=== PATIENT | female | born 1950 | race Hispanic/Latino ===

== ENCOUNTER 2016-12-09 08:25 | Day surgery (SDC) | payer OTHER, MEDICARE ==
[~2016-12-09 08:25] MED LIST: ANCEF/STERILE WATER 2 GM/20 ML 2 GM/20 ML SYRINGE IV NR; NACL 0.9% 1000 ML 1,000 ML IV SCH
[2016-12-09 09:13] LABS: Basophils % (Auto) 0.2 % (0.0-1.8); Eosinophils % (Auto) 2.7 % (0.0-4.3); Hematocrit 41.9 % (30.3-42.9); Mean Corpuscular HGB Conc 33 % (30-34); Mean Corpuscular Hemoglobin 31 pg (28-32); Mean Corpuscular Volume 92 fl (79-97); Platelet Count 228 K/mm3 (140-440); Red Blood Count 4.54 M/mm3 (3.65-5.03); Red Cell Distribution Width 12.5 % (13.2-15.2); White Blood Count 5.2 K/mm3 (4.5-11.0)
[2016-12-09 09:31] LABS: Anion Gap 11 mmol/L; BUN/Creatinine Ratio 35; Blood Urea Nitrogen 21 mg/dL (7-17); Calcium 9.3 mg/dL (8.4-10.2); Carbon Dioxide 32 mmol/L (22-30); Glucose 86 mg/dL (65-100); Potassium 4.4 mmol/L (3.6-5.0); Sodium 144 mmol/L (137-145)
[2016-12-09] MEDS ORDERED: HEPARIN/NS 5000 UNIT/500ML(CATH LAB) 500 ML IR ONE ×2 (15:08→16:09)
[2016-12-09] MEDS ORDERED: HEPARIN 10,000 UNITS/10 ML ONE (15:08)
[2016-12-09] MEDS ORDERED: CALAN ONE (15:09)
[2016-12-09] MEDS ORDERED: XYLOCAINE 2% INFILTRATI ONE (15:09)
[2016-12-09] MEDS ORDERED: NITROGLYCERIN SYRINGE 3 ML ONE (15:09)
[2016-12-09] MEDS: VERSED ONE ×2 (15:25→15:54)
[2016-12-09] MEDS: SUBLIMAZE ONE ×2 (15:25→15:54)
--- NOTE | 2016-12-09 16:33 | Short Stay Summary ---
Short Stay Documentation Date of service: 12/09/16 - History Principal diagnosis: Mesenteric artery stenosis H&P: obtained from office - Allergies and Medications Current Medications: Allergies cephalexin [From Keflex] Adverse Reaction (Verified 12/09/16 12:07) Swelling clarithromycin [From Biaxin] Adverse Reaction (Verified 12/09/16 12:07) Dizziness codeine Adverse Reaction (Verified 12/09/16 12:07) Itching promethazine [From Phenergan] Adverse Reaction (Verified 12/09/16 12:07) Dizziness Home Medications Medication Instructions Recorded Confirmed Last Taken Type Calcium Elemental 600 mg 1,200 mg PO DAILY 12/09/16 12/09/16 12/08/16 History Ambien 10 mg PO QHS 12/09/16 12/09/16 12/08/16 History Amlodipine Besylate [Norvasc] 5 mg PO DAILY 12/09/16 12/09/16 12/08/16 History Aspirin EC [Aspirin Enteric Coated 81 mg PO DAILY 12/09/16 12/09/16 12/08/16 History TAB] Magnesium [Magnesium] 250 mg PO DAILY 12/09/16 12/09/16 12/08/16 History Mvw Complete Form Multivi Sfgl 1 tab PO DAILY 12/09/16 12/09/16 12/08/16 History Pantoprazole [Protonix TAB] 20 mg PO DAILY 12/09/16 12/09/16 12/08/16 History Turmeric 500 mg Capsule 500 mg PO DAILY 12/09/16 12/09/16 12/08/16 History Active Medications Cefazolin Sodium (Ancef/Sterile Water 2 Gm/20 Ml) 2 gm in 20 mls @ 80 mls/hr IV PREOP NR PRN Reason: Protocol Stop: 12/09/16 23:59 Sodium Chloride (Nacl 0.9% 1000 Ml) 1,000 mls @ 42 mls/hr IV DIRECT MELISSA Last Admin: 12/09/16 12:11 Dose: 42 mls/hr - Brief post op/procedure progress note Date of procedure: 12/09/16 Pre-op diagnosis: SMA stenosis Post-op diagnosis: same Procedure: SMA stent, DCB Anesthesia: local Surgeon: DANIAL PERLA Estimated blood loss: minimal Pathology: none Condition: stable - Disposition Condition at discharge: Good Disposition: [id number] TO HOME OR SELFCARE Short Stay Discharge Plan Activity: advance as tolerated Weight Bearing Status: Weight Bear as Tolerated Diet: regular Wound: keep clean and dry, per your surgeon's advice Follow up with: DANIAL PERLA MD [Staff Physician] - 14 Days
--- NOTE | 2016-12-09 16:41 | Operative Report ---
Operative Report Operative Report: EXAM: SMA ANGIOPLASTY AND STENT CLINICAL INDICATION: PATIENT WITH SMA STENOSIS AND POSTPRANDIAL ABDOMINAL PAIN WITH CACHECIA DATE: 12/09/2016 PROCEDURE: Following an explanation of the risks, benefits and alternatives; written informed consent was obtained. The patient was brought to the angiographic suite and placed in supine position on the examination table. Initial ultrasound evaluation of her left wrist demonstrated a patent left radial artery. The left wrist was prepped and draped in the usual sterile fashion. 1% lidocaine was used for anesthesia. Under ultrasound guidance, the left radial artery was cannulated with a 7 cm 21- gauge needle. A 0.018 guidewire was advanced centrally. The needle was removed and a 5/6 low-profile radial sheath advanced over the guidewire. The trocar and guidewire were removed and the sheath flushed with a combination of heparin, nitroglycerin and verapamil. A 5 [place]ese MPA catheter and a 0.035 guidewire were then advanced under fluoroscopy centrally. Together the guidewire and catheter were advanced into the abdominal aorta. The catheter was removed and a pigtail placed over the guidewire. Angiography was performed to identify the origins of the mesenteric vessels. The pigtail was removed and the MPA again inserted. Selective cannulation of the SMA was then performed. Angiography within the SMA demonstrated an 80% stenosis within the proximal SFA proximally 1 cm distal to the origin. Distal to the stenosis, the vessels are widely patent. There is no evidence of a replaced right hepatic artery. The guidewire was advanced distal to the stenosis and angioplasty of the stenosis performed using a 6 mm x 40 mm drug-coated balloon insufflated to 6 luis for 3 minutes. Post angioplasty imaging and a straight of reduction of the stenosis to 20% however there appeared to be continuous recoil as additional imaging was obtained. A decision therefore was made to place a stent across this lesion. A 6 mm x 27 mm balloon expandable stent was then advanced across the lesion and deployed. The balloon was insufflated to 8 luis for 10 seconds. Post stent deployment imaging demonstrated reduction of the stenosis to 0%. At this point, the catheters, guidewires and sheath was removed and hemostasis achieved using manual compression. A sterile compression dressing was then applied. The patient tolerated the procedure well. There were no immediate post procedure complications. Conscious sedation was performed under the guidance of radiologic nursing. Continuous cardiopulmonary monitoring was utilized. IMPRESSION: 1) SMA angiography demonstrating 80% stenosis just distal to the origin of the SMA. There is no evidence of a replaced right hepatic artery. 2 ) Angioplasty of the stenosis using a drug-coated balloon. 3) Treatment of the stenosis using a balloon-expandable stent with residual 0% stenosis.
[2016-12-09 17:19] VITALS: BP 122/47
== END 2016-12-09 17:52 | disposition home or self-care (01) ==
LOC: CATHLABREC 08:25
PROVIDERS: ATTEND Radiology Diagnostic Radiology
DX: K55.1 Chronic vascular disorders of intestine (principal); E78.00 Pure hypercholesterolemia, unspecified; Z88.6 Allergy status to analgesic agent; Z88.2 Allergy status to sulfonamides; Z88.8 Allergy status to other drugs, medicaments and biological substances; Z85.9 Personal history of malignant neoplasm, unspecified
CPT/HCPCS: 36245; 36415; 37236; 75726; 80048; 85025; 99152; 99153; C1769; C1894; J1644; J2250; J3010; J7030; Q9967